=== PATIENT | male | born 1965 | race Caucasian/White ===

== ENCOUNTER 2018-10-05 12:59 | Emergency (ER) | payer OTHER ==
[~2018-10-05] VITALS: Ht 182.9 cm; Wt 98.9 kg
[2018-10-05 13:17] VITALS: Ht 182.9 cm; Wt 98.9 kg
[2018-10-05 15:50] VITALS: BP 142/88
== END 2018-10-05 15:50 | disposition home or self-care (01) ==
LOC: ED 12:59
DX: G89.29 Other chronic pain (principal); R51 Headache; M54.2 Cervicalgia; M25.572 Pain in left ankle and joints of left foot
CPT/HCPCS: J1100; J1885

== ENCOUNTER 2018-11-02 20:25 | Emergency (ER) | payer OTHER ==
[~2018-11-02] VITALS: Ht 182.9 cm; Wt 94.8 kg
[2018-11-02 20:44] VITALS: BP 149/97; Ht 182.9 cm; Wt 94.8 kg
== END 2018-11-02 23:39 | disposition left against medical advice (07) ==
LOC: ED 20:25
DX: Z53.21 Procedure and treatment not carried out due to patient leaving prior to being seen by health care provider (principal)

== ENCOUNTER 2018-11-03 00:07 | Emergency (ER) | payer OTHER ==
[~2018-11-03] VITALS: Ht 182.9 cm; Wt 97.5 kg
[2018-11-03 00:15] VITALS: Ht 182.9 cm; Wt 97.5 kg
[2018-11-03 01:24] VITALS: BP 144/97
== END 2018-11-03 01:24 | disposition home or self-care (01) ==
LOC: ED 00:07
DX: M54.2 Cervicalgia (principal); M25.572 Pain in left ankle and joints of left foot; G89.29 Other chronic pain
CPT/HCPCS: J1100; J1885